=== PATIENT | female | born 1970 | race Two or more races ===

== ENCOUNTER 2019-12-07 23:25 | Emergency (ER) | payer MEDICAID, OTHER ==
[~2019-12-07] VITALS: Ht 172.7 cm; Wt 81.6 kg
[2019-12-08 01:44] VITALS: BP 157/95
== END 2019-12-08 01:44 | disposition home or self-care (01) ==
LOC: ER 23:25
DX: J06.9 Acute upper respiratory infection, unspecified (principal)

== ENCOUNTER 2019-12-21 14:45 | Emergency (ER) | payer MEDICAID ==
[~2019-12-21] VITALS: Ht 172.7 cm; Wt 81.6 kg
[2019-12-21 16:00] VITALS: BP 155/94
== END 2019-12-21 17:00 | disposition home or self-care (01) ==
LOC: ER 14:46
DX: J40 Bronchitis, not specified as acute or chronic (principal); E86.0 Dehydration
CPT/HCPCS: 87070; 87804; 87880

== ENCOUNTER 2020-05-26 09:58 | Emergency (ER) | payer MEDICAID ==
[~2020-05-26] VITALS: Ht 172.7 cm; Wt 74.8 kg
[2020-05-26] MEDS ORDERED: SODIUM CHLORIDE 0.9% 1,000 ML IV ONE (10:52)
[2020-05-26 11:45] LABS: Basophils # (auto) 0 10 ^3/uL (0-0.2); Basophils % (auto) 0.1 % (0.0-2.0); Eosinophils # (auto) 0 10 ^3/uL (0-0.8); Eosinophils % (auto) 0.6 % (0.0-7.0); Hematocrit 45.3 % (36.0-46.0); Hemoglobin 14.8 g/dL (12.2-16.2); Lymphocytes # (auto) 1.2 10 ^3/uL (0.4-5.4); Mean Corpuscular Hemoglobin 28.1 pg (28.0-32.0); Mean Corpuscular Hgb Conc. 32.6 g/dL (32.0-36.0); Mean Corpuscular Volume 86.2 fL (80.0-100.0); Monocytes # (auto) 0.5 10 ^3/uL (0-1.3); Monocytes % (auto) 7.1 % (0.0-12.0); Neutrophils # (auto) 4.7 10 ^3/uL (1.6-8.6); Neutrophils % (auto) 73.2 % (37.0-80.0); Nucleated Red Blood Cells % 0.1 %; Platelet Count (auto) 181 10^3/uL (140-450); Red Blood Cells 5.26 10^6/uL (4.0-5.20); Red Cell Distribution Width 14.2 % (11.8-14.3); White Blood Cell 6.4 10^3/uL (4.4-10.8)
[2020-05-26 12:05] LABS: Albumin 3.2 g/dL (3.4-5.0); Potassium 3.7 mmol/L (3.5-5.1)
[2020-05-26 12:10] LABS: BUN/Creatinine Ratio 27.4; Bilirubin, Total 0.3 mg/dL (0.2-1.0); Total Protein 6.3 g/dL (6.4-8.2)
[2020-05-26 12:15] LABS: Alcohol, Urine < 3.0 mg/dL (0-10); Amphetamine Screen, Urine NEGATIVE (NEGATIVE); Barbiturate Scree,Urine NEGATIVE (NEGATIVE); Benzodiazephine Screen, Urine NEGATIVE (NEGATIVE); Cannabinoid Screen, Urine NEGATIVE (NEGATIVE); Cocaine Screen, Urine NEGATIVE (NEGATIVE); Opiate Scree,Urine NEGATIVE (NEGATIVE); Phencyclidine Screen, Urine NEGATIVE (NEGATIVE)
[2020-05-26 12:17] LABS: Urine Bacteria NONE SEEN /hpf (None Seen); Urine Blood Negative /uL (Negative); Urine Specific Gravity 1.012 (1.001-1.035); Urine WBC 12 /hpf (0 - 5)
[2020-05-26 13:16] VITALS: BP 121/85
== END 2020-05-26 13:40 | disposition home or self-care (01) ==
LOC: ER 09:58
DX: R20.0 Anesthesia of skin (principal); N39.0 Urinary tract infection, site not specified; E44.1 Mild protein-calorie malnutrition; Z68.25 Body mass index [BMI] 25.0-25.9, adult
CPT/HCPCS: 36415; 70450; 71046; 80053; 80307; 81001; 83735; 85025; 93005; 96360; 96361

== ENCOUNTER 2020-08-28 07:20 | Emergency (ER) | payer MEDICAID ==
[~2020-08-28] VITALS: Ht 172.7 cm; Wt 74.8 kg
[2020-08-28 07:30] VITALS: BP 124/93
== END 2020-08-28 12:10 | disposition home or self-care (01) ==
LOC: ER 07:20
DX: U07.1 COVID-19 (principal); R19.7 Diarrhea, unspecified; Z90.89 Acquired absence of other organs
CPT/HCPCS: 36415; 71045; 87426

== ENCOUNTER 2023-06-02 00:18 | Emergency (ER) | payer MEDICAID ==
[~2023-06-02] VITALS: Ht 172.7 cm; Wt 75.0 kg
[2023-06-02 00:18] VITALS: BP 119/84; PULSE 99; RESP 18; O2SAT 97
== END 2023-06-02 05:33 | disposition home or self-care (01) ==
LOC: ER 00:18
DX: R04.0 Epistaxis (principal); Z90.89 Acquired absence of other organs

== ENCOUNTER 2024-03-15 00:29 | Inpatient (IN) | payer MEDICAID ==
[~2024-03-15] VITALS: Ht 172.7 cm; Wt 76.8 kg
[2024-03-15 01:19] LABS: Urine Bacteria None Seen /hpf (None Seen)
[2024-03-15 01:25] LABS: Basophils # (auto) 0 10 ^3/uL (0-0.2); Basophils % (auto) 0.2 % (0.0-2.0); Eosinophils # (auto) 0.1 10 ^3/uL (0-0.8); Eosinophils % (auto) 0.5 % (0.0-7.0); Hematocrit 44.8 % (36.0-46.0); Hemoglobin 15.1 g/dL (12.2-16.2); Lymphocytes # (auto) 2.5 10 ^3/uL (0.4-5.4); Lymphocytes % (auto) 21.7 % (10.0-50.0); Mean Corpuscular Hgb Conc. 33.7 g/dL (32.0-36.0); Mean Corpuscular Volume 85.9 fL (80.0-100.0); Monocytes # (auto) 0.8 10 ^3/uL (0-1.3); Neutrophils % (auto) 70.6 % (37.0-80.0); Nucleated Red Blood Cells % 0.1 %; Red Blood Cells 5.21 10^6/uL (4.0-5.20); Red Cell Distribution Width 15.1 % (11.8-14.3); White Blood Cell 11.4 10^3/uL (4.4-10.8)
[2024-03-15 01:26] LABS: Urine Blood Negative /uL (Negative); Urine Clarity Clear (Clear); Urine Color Light-Yellow (Yellow); Urine Protein, UAD Negative (Negative); Urine Specific Gravity 1.019 (1.001-1.035); Urine Urobilinogen Normal (Negative); Urine WBC <1 /hpf (0 - 5)
[2024-03-15 01:38] LABS: Alanine Aminotransferase 90 U/L (7-40); Albumin 4.2 g/dL (3.2-4.8); Alkaline Phosphatase 200 U/L (46-116); Anion Gap 5 (5-15); Aspartate Aminotransferase 85 U/L (13-40); BUN/Creatinine Ratio 33.3 (10.0-20.0); Bilirubin, Total 0.5 mg/dL (0.2-1.0); Blood Urea Nitrogen 23 mg/dL (9-23); Calcium 9.9 mg/dL (8.7-10.4); Carbon Dioxide 27 mmol/L (20-30); Chloride 108 mmol/L (98-107); Glucose 155 mg/dL (74-106); Lipase 45 U/L (12-53); Sodium 140 mmol/L (136-145); Total Protein 7.1 g/dL (5.7-8.2)
[2024-03-15] MEDS: ONDANSETRON ODT 4 MG TAB PO ONE (03:12)
[2024-03-15] MEDS: HYDROcodone-ACET 5/325MG TAB PO ONE (03:13)
[2024-03-15 03:23] VITALS: PULSE 84; RESP 20; O2SAT 98
[2024-03-15 05:34] VITALS: PULSE 84; RESP 20; O2SAT 98
[2024-03-15] MEDS ORDERED: ACETAMINOPHEN 325 MG TAB PO PRN (06:30)
[2024-03-15 07:38] VITALS: PULSE 65; RESP 13; O2SAT 97
[2024-03-15] MEDS: ONDANSETRON HCL 4 MG/2 ML VIAL IV PRN (10:32)
[2024-03-15] MEDS: cefTRIAXone 1GM/50ML D5W 50 ML IV SCH (18:27)
[2024-03-15] MEDS: SODIUM CHLORIDE 0.9% 1,000 ML IV SCH (18:27)
[2024-03-15 19:07] LABS: INR 0.98 (0.9-1.15); Partial Thromboplastin Time 26.6 SEC (24.5-34.5); Prothrombin Time 10.4 sec (9.3-11.8)
[2024-03-15 20:30] VITALS: PULSE 66; RESP 16; O2SAT 96
[2024-03-15] MEDS ORDERED: metroNIDAZOLE 500MG/100ML 100 ML IV SCH (22:00)
[2024-03-15] MEDS: metroNIDAZOLE 500 MG TAB PO ONE (23:01)
[2024-03-16] VITALS (8 sets, daily range): BP systolic 105–129; BP diastolic 65–86; PULSE 55–77; RESP 16–19; TEMP 98.1–98.7; O2SAT 92–98
[2024-03-16 04:51] LABS: Hematocrit 42.8 % (36.0-46.0); Hemoglobin 14.3 g/dL (12.2-16.2); Mean Corpuscular Hemoglobin 28.9 pg (28.0-32.0); Mean Corpuscular Hgb Conc. 33.5 g/dL (32.0-36.0); Mean Corpuscular Volume 86.2 fL (80.0-100.0); Red Blood Cells 4.97 10^6/uL (4.0-5.20); Red Cell Distribution Width 14.8 % (11.8-14.3); White Blood Cell 6.9 10^3/uL (4.4-10.8)
[2024-03-16 05:07] LABS: Alanine Aminotransferase 105 U/L (7-40); Albumin 3.7 g/dL (3.2-4.8); Alkaline Phosphatase 170 U/L (46-116); Anion Gap 7 (5-15); Aspartate Aminotransferase 48 U/L (13-40); BUN/Creatinine Ratio 13.1 (10.0-20.0); Calcium 9.2 mg/dL (8.7-10.4); Carbon Dioxide 26 mmol/L (20-30); Chloride 108 mmol/L (98-107); Glucose 95 mg/dL (74-106); Potassium 3.3 mmol/L (3.5-5.1); Sodium 141 mmol/L (136-145)
[2024-03-16 05:08] LABS: Bilirubin, Total 0.5 mg/dL (0.2-1.0)
[2024-03-16 05:13] LABS: Basophils % (manual) 0 (0.0-2.0); Blast Cells 0; Metamyelocytes % 0; Promyelocytes % 0; Reactive Lymphocytes 0
[2024-03-16 05:14] LABS: Blood Urea Nitrogen 8 mg/dL (9-23)
[2024-03-16 05:45] LABS: Band Neutrophils % (manual) 1; Eosinophils % (manual) 3 (0-7); Lymphocytes % (manual) 35 (10.0-50.0); Monocytes % (manual) 9 (0-12); Myelocytes % 1; Platelet Estimate Adequate
[2024-03-16] MEDS ORDERED: ATOR-47 PO (05:57)
[2024-03-16] MEDS ORDERED: EMTR1TAB6 PO (05:57)
[2024-03-16] MEDS: metroNIDAZOLE 500 MG TAB PO SCH (06:31)
[2024-03-16 08:51] LABS: Hepatitis B Core Total AB Negative (Negative)
[2024-03-16 09:35] LABS: Hepatitis A Total Antibody Positive (Negative); Hepatitis B Surface Antibody Positive (Negative)
[2024-03-16 09:36] LABS: Hepatitis B Surface Antigen Negative (Negative); Hepatitis C Antibody Negative (Negative)
[2024-03-16] MEDS: HYDROcodone-ACET 5/325MG TAB PO PRN (09:47)
[2024-03-16 10:36] LABS: INR 1.02 (0.9-1.15); Partial Thromboplastin Time 27.5 SEC (24.5-34.5); Prothrombin Time 10.8 sec (9.3-11.8)
[2024-03-16] MEDS: D5W/SOD CHL 0.45%/KCL 20MEQ 1,000 ML IV SCH (13:15)
[2024-03-17] VITALS (9 sets, daily range): BP systolic 107–125; BP diastolic 72–87; PULSE 59–93; RESP 16–18; TEMP 98–98.7; O2SAT 93–99
[2024-03-17 06:38] LABS: Alanine Aminotransferase 78 U/L (7-40); Albumin 3.6 g/dL (3.2-4.8); Alkaline Phosphatase 157 U/L (46-116); Calcium 9.3 mg/dL (8.7-10.4); Carbon Dioxide 27 mmol/L (20-30); Chloride 107 mmol/L (98-107); Glucose 95 mg/dL (74-106); Potassium 3.6 mmol/L (3.5-5.1)
[2024-03-17 06:39] LABS: Anion Gap 6 (5-15); BUN/Creatinine Ratio 8.1 (10.0-20.0); Bilirubin, Total 0.5 mg/dL (0.2-1.0); Blood Urea Nitrogen 5 mg/dL (9-23); Sodium 140 mmol/L (136-145)
[2024-03-17] MEDS: ROCURONIUM 10MG/ML 10ML VIAL IV ONE (07:00)
[2024-03-17] MEDS: SUCCINYLCHOLINE CHLORIDE 20 MG/ML 10ML VIAL IV ONE (07:00)
[2024-03-17 07:07] LABS: Aspartate Aminotransferase 21 U/L (13-40)
[2024-03-17] MEDS ORDERED: ONDANSETRON HCL 4 MG/2 ML VIAL ONE (07:16)
[2024-03-17] MEDS ORDERED: DexAMETHasone SOD PHOS 10MG/1ML VIAL INJ ONE (07:16)
[2024-03-17] MEDS ORDERED: MIDAZOLAM HCL 2MG/2ML 2ml VIAL (1mg/ml) ONE (07:16)
[2024-03-17] MEDS ORDERED: LIDOCAINE 1% INJ PF 5ML AMP ONE (07:16)
[2024-03-17] MEDS ORDERED: SODIUM CHLORIDE LOCK 10 ML ONE (07:16)
[2024-03-17] MEDS ORDERED: fentaNYL CITRATE 100 MCG/2 ML VL ONE ×2 (07:16→08:53)
[2024-03-17] MEDS ORDERED: GLYCOPYRROLATE 0.2 MG/ML 1ML VIAL ONE (07:16)
[2024-03-17] MEDS ORDERED: PROPOFOL 10 MG/ML 20 ML IV ONE (07:16)
[2024-03-17] MEDS ORDERED: KETAMINE 50mg/ML 1ml syringe ONE (07:16)
[2024-03-17] MEDS ORDERED: MEPERIDINE HCL (50 MG/ML) 1 ML VIAL ONE (07:16)
[2024-03-17] MEDS ORDERED: NEOSTIGMINE 1 MG/ML INJ (10mg/10ML VIAL) ONE (07:16)
[2024-03-17] MEDS ORDERED: MORPHINE SULFATE INJ 2 MG/ml SYRG IV PRN (07:30)
[2024-03-17] MEDS ORDERED: fentaNYL CITRATE 100 MCG/2 ML VL IV PRN (07:30)
[2024-03-17] MEDS ORDERED: HYDROmorphone HCL 2 MG/ML VL/or syr IV PRN (07:30)
[2024-03-17] MEDS: ceFAZolin 2 GM/D5W50ml 50 ML IV ONE (08:06)
[2024-03-17] MEDS ORDERED: ONDANSETRON HCL 4 MG/2 ML VIAL IV PRN (09:15)
[2024-03-17] MEDS: D5W/SOD CHL 0.45%/KCL 20MEQ 1,000 ML IV SCH (09:15)
[2024-03-17] MEDS: BUPIVACAINE HCL 0.25% P/F 10 ML VIAL ONE (09:20)
[2024-03-17] MEDS: LIDOCAINE W/ EPINEPHRINE 1% 20ML VIAL ONE (09:20)
[2024-03-17] MEDS: PANTOPRAZOLE 40 MG/10 ML VIAL INJ IV SCH (10:00)
[2024-03-17] MEDS: METOCLOPRAMIDE HCL 5MG/ml INJ 2ml VIAL IV ONE (10:06)
[2024-03-17] MEDS: HYDROmorphone HCL 2 MG/ML VL/or syr IV PRN ×2 (10:09→16:31)
[2024-03-18 01:00] VITALS: BP 116/74; PULSE 69; RESP 18; TEMP 98.5; O2SAT 92
[2024-03-18 05:00] VITALS: BP 136/78; PULSE 68; RESP 18; TEMP 97.9; O2SAT 93
[2024-03-18 06:05] LABS: Basophils # (auto) 0 10 ^3/uL (0-0.2); Basophils % (auto) 0.1 % (0.0-2.0); Eosinophils # (auto) 0.1 10 ^3/uL (0-0.8); Eosinophils % (auto) 0.9 % (0.0-7.0); Hematocrit 44.3 % (36.0-46.0); Lymphocytes # (auto) 1.7 10 ^3/uL (0.4-5.4); Lymphocytes % (auto) 21.3 % (10.0-50.0); Mean Corpuscular Hemoglobin 29.1 pg (28.0-32.0); Mean Corpuscular Hgb Conc. 33.9 g/dL (32.0-36.0); Mean Corpuscular Volume 85.9 fL (80.0-100.0); Monocytes # (auto) 0.6 10 ^3/uL (0-1.3); Monocytes % (auto) 7.9 % (0.0-12.0); Neutrophils # (auto) 5.7 10 ^3/uL (1.6-8.6); Neutrophils % (auto) 69.8 % (37.0-80.0); Red Blood Cells 5.16 10^6/uL (4.0-5.20); Red Cell Distribution Width 14.9 % (11.8-14.3); White Blood Cell 8.1 10^3/uL (4.4-10.8)
[2024-03-18 08:00] VITALS: PULSE 65; RESP 18; O2SAT 95
[2024-03-18 08:31] VITALS: BP 125/76; PULSE 60; RESP 20; TEMP 98.7; O2SAT 94
[2024-03-18] MEDS ORDERED: HYDR-4902 PO (11:28)
[2024-03-18] MEDS ORDERED: METR-344 PO (11:28)
[2024-03-18] MEDS ORDERED: ZOFR4T PO (11:30)
[2024-03-18 12:55] VITALS: BP 136/101; PULSE 65; RESP 18; TEMP 98.7; O2SAT 95
[2024-03-18 14:57] VITALS: BP 132/95; PULSE 65; RESP 18; TEMP 98.7; O2SAT 95
== END 2024-03-18 16:30 | disposition home or self-care (01) | DRG 263 ==
LOC: ER 00:29 → OVERFLOW 06:32 → CENTRAL 03-16 05:45
PROVIDERS: ADMIT Nurse Practitioner; ATTEND Internal Medicine
PROC: 0FT44ZZ Resection of Gallbladder, Percutaneous Endoscopic Approach (ICD-10-PCS; principal; 2024-03-17 08:32)
DX: K80.64 Calculus of gallbladder and bile duct with chronic cholecystitis without obstruction (principal); K82.8 Other specified diseases of gallbladder; R74.01 Elevation of levels of liver transaminase levels; Z79.899 Other long term (current) drug therapy
CPT/HCPCS: 36415; 71045; 74176; 76705; 78226; 80053; 81001; 82247; 83690; 85007; 85025; 85027; 85610; 85730; 86038; 86704; 86706; 86708; 86803; 86850; 86900; 86901; 87340; 96374; C9113; G0378; J0330; J1100; J2250; J2405; J2704; J3490; Q0162